=== PATIENT | female | born 1950 | race Two or more races ===

== ENCOUNTER 2021-06-20 16:46 | Emergency (ER) | payer MEDICARE, OTHER ==
[~2021-06-20] VITALS: Ht 160 cm; Wt 60.8 kg
--- NOTE | 2021-06-20 17:00 | NUR ---
SENT HERE BY CLINIC DUE TO HIGH BP AND TACHYCARDIA. PATIENT A/OX4, VERBALLY RESPONSIVE, NO DISTRESS NOTED. PLACED ON THE JANITOR CUSTODIAN.
[2021-06-20] MEDS ORDERED: LABETALOL HCL IV 100MG VIAL ONE (17:02)
--- NOTE | 2021-06-20 17:05 | NUR ---
DR. RIOS AT BEDSIDE. PATIENT DENIES ANY CHEST PAIN OR DISCOMFORT. WILL CONTINUE TO MONITOR.
[2021-06-20] MEDS: LABETALOL 20 MG/4 ML VIAL IV ONE (17:06)
[2021-06-20] MEDS ORDERED: ATOR10TA PO (17:10)
[2021-06-20] MEDS ORDERED: LOSA50TA39 PO (17:10)
[2021-06-20] MEDS ORDERED: METO-357 PO (17:10)
[2021-06-20] MEDS ORDERED: METF-442 PO (17:10)
[2021-06-20] MEDS ORDERED: GLIP10TA11 PO (17:10)
[2021-06-20] MEDS ORDERED: EMPA10TA PO (17:10)
[2021-06-20] MEDS ORDERED: TOPI50TA24 PO (17:10)
[2021-06-20] MEDS: IV NS 0.9% 1,000 ML BAG IV ONE (17:11)
[2021-06-20 17:23] LABS: BASOPHILS % (AUTO) 0.5 % (0.0-2.0); HEMATOCRIT 40 % (33-45); HEMOGLOBIN 12.6 g/dL (11.5-14.8); LYMPHOCYTES # (AUTO) 1.8 K/uL (0.8-4.8); LYMPHOCYTES % (AUTO) 21.6 % (20.0-44.0); MEAN CORPUSCULAR HGB CONC 32 g/dl (31.0-36.0); MEAN CORPUSCULAR VOLUME 89 fL (82-100); MONOCYTES # (AUTO) 0.6 K/uL (0.1-1.30); MONOCYTES % (AUTO) 7.7 % (2.0-12.0); NEUTROPHILS # (AUTO) 5.7 K/uL (1.8-8.9); NEUTROPHILS % (AUTO) 69.2 % (43.0-81.0); PLATELET COUNT (AUTO) 293 K/uL (150-450); RED BLOOD CELL COUNT(AUTO) 4.45 MIL/uL (4.0-5.2); WHITE BLOOD COUNT (AUTO) 8.2 K/uL (4.3-11.0)
--- NOTE | 2021-06-20 17:44 | NUR ---
PATIENT A/OX4, BREATHING EVEN AND UNLABORED, NO SOB NOTED, NEEDS ATTENDED, KEPT COMFORTABLE. DENIES ANY PAIN AT THIS TIME. HR&BP IMPROVED.
[2021-06-20 17:50] LABS: CALCIUM, SERUM 9.3 mg/dL (8.5-10.1); CARBON DIOXIDE 22 mmol/L (21-32); CHLORIDE 103 mmol/L (98-107); GLUCOSE 133 mg/dL (74-106); SODIUM SERUM 139 mmol/L (136-145); UREA NITROGEN, BLOOD 30 mg/dL (7-18)
[2021-06-20 18:04] LABS: THYROID STIMULATING HORMONE 1.997 uIU/mL (0.358-3.74)
[2021-06-20] MEDS ORDERED: LOSA100T31 PO (18:27)
--- NOTE | 2021-06-20 18:38 | NUR ---
Patient a/ox4, bp and heart rate improved. No distress noted. Ambulatory withs teady gait. Denies pain at this time. IV removed. Catheter intact and site benign. Pressure and 4x4 applied to site. No bleeding noted.Patient discharged to home in stable condition. Written and verbal after care instructions given. Patient verbalizes understanding of instruction.
[2021-06-20 18:41] VITALS: BP 166/77
== END 2021-06-20 18:41 | disposition home or self-care (01) ==
LOC: ER 17:00
DX: I10 Essential (primary) hypertension (principal); R00.0 Tachycardia, unspecified; Z79.899 Other long term (current) drug therapy
CPT/HCPCS: 36415; 71045; 80048; 83880; 84439; 84443; 84484; 85025; 93005 ×4; 96361; 96374; 99291; J3490; J7030

== ENCOUNTER 2024-08-04 12:47 | Emergency (ER) | payer MEDICARE, OTHER ==
[~2024-08-04] VITALS: Ht 160 cm; Wt 63.5 kg
[~2024-08-04 12:47] MED LIST: ATOR10TA PO; EMPA10TA PO; GLIP10TA11 PO; LOSA100T31 PO; LOSA50TA39 PO; METF-442 PO; METO-357 PO; TOPI50TA24 PO
[2024-08-04] MEDS ORDERED: hydrALAZINE HCL IV 20 MG VIAL ONE (13:24)
[2024-08-04] MEDS: hydrALAZINE HCL IV 20 MG VIAL IV ONE (13:30)
[2024-08-04 13:45] LABS: BASOPHILS % (AUTO) 0.4 % (0.0-2.0); EOSINOPHILS # (AUTO) 0.1 K/uL (0.0-0.7); EOSINOPHILS % (AUTO) 1.3 % (0.0-6.0); HEMATOCRIT 40 % (33-45); HEMOGLOBIN 13.4 g/dL (11.5-14.8); LYMPHOCYTES # (AUTO) 1.5 K/uL (0.8-4.8); LYMPHOCYTES % (AUTO) 18.6 % (20.0-44.0); MEAN CORPUSCULAR HEMOGLOBIN 31 PG (26.0-33.0); MEAN CORPUSCULAR HGB CONC 33 g/dl (31.0-36.0); MEAN CORPUSCULAR VOLUME 93 fL (82-100); MONOCYTES # (AUTO) 0.6 K/uL (0.1-1.30); MONOCYTES % (AUTO) 7.8 % (2.0-12.0); NEUTROPHILS # (AUTO) 5.9 K/uL (1.8-8.9); NEUTROPHILS % (AUTO) 71.9 % (43.0-81.0); PLATELET COUNT (AUTO) 243 K/uL (150-450); RED CELL DISTRIBUTION WIDTH 14.2 % (11.5-15.0); WHITE BLOOD COUNT (AUTO) 8.1 K/uL (4.3-11.0)
[2024-08-04 14:03] LABS: CARBON DIOXIDE 25 mmol/L (21-32); CHLORIDE 103 mmol/L (98-107); CREATININE 1.4 mg/dL (0.6-1.3); GLUCOSE 160 mg/dL (74-106); POTASSIUM 4.2 mmol/L (3.5-5.1); SODIUM SERUM 138 mmol/L (136-145); UREA NITROGEN, BLOOD 28 mg/dL (7-18)
[2024-08-04 14:06] LABS: APPEARANCE,URINE CLEAR (CLEAR); BILIRUBIN,URINE NEGATIVE (NEGATIVE); BLOOD, URINE NEGATIVE Ery/uL (NEGATIVE); COLOR,URINE OTHER (YELLOW); KETONES,URINE NEGATIVE (NEGATIVE); LEUKOCYTE ESTERASE ,URINE NEGATIVE (NEGATIVE); NITRITE, URINE NEGATIVE (NEGATIVE); PROTEIN,URINE TRACE mg/dl (NEGATIVE); UGLUCOSE TRACE mg/dL (NEGATIVE); UROBILINOGEN,URINE 0.2 EU/dL (0.2)
[2024-08-04 14:15] LABS: ADD URINE CULTURE NO; BACTERIA,URINE None seen /HPF (None Seen); RBC,URINE 0-2 /HPF (0-2); SQUAMOUS EPITHELIAL CELL,UR 0-2 /HPF (None Seen); WBC,URINE 0-2 /HPF (0-3)
[2024-08-04 14:16] LABS: HYALINE CASTS, URINE Few /LPF (None Seen); MUCUS,URINE Few /LPF (None Seen); TRICHOMONAS,URINE None Seen /HPF (None Seen); YEAST,URINE None Seen /HPF (None Seen)
[2024-08-04 15:05] VITALS: BP 149/66; TEMP 98.6; O2SAT 99
== END 2024-08-04 15:00 | disposition home or self-care (01) ==
LOC: ER 12:58
DX: I16.0 Hypertensive urgency (principal); N28.9 Disorder of kidney and ureter, unspecified; R51.9 Headache, unspecified; E11.9 Type 2 diabetes mellitus without complications; E78.5 Hyperlipidemia, unspecified; R42 Dizziness and giddiness
CPT/HCPCS: 99285; 96374; 70450; 71045; 93005; 85025; 80048; 81001; 36415; J0360